=== PATIENT | male | born 1980 ===

== ENCOUNTER 2017-09-28 11:58 | Emergency (ER) | payer BC, OTHER ==
[2017-09-28] MEDS ORDERED: DOXYcycline CAP(*) 100 MG PO ONE (12:59)
--- NOTE | 2017-09-28 13:06 | UC ---
Skin Complaint HPI - HPI Summary HPI Summary: Patient is a 37-year-old male presenting to the with chief complaint of tick bite to the left inner thigh. He states he believes he has hepatitic for 5 days. Denies any pain to the area. 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 Denies any fevers, sweats, chills, body aches or joint pains. He has never been diagnosed with Lyme disease. - History of Current Complaint Chief Complaint: UCSkin Time Seen by Provider: 09/28/17 12:24 Stated Complaint: TICK BITE Hx Obtained From: Patient Onset/Duration: Sudden Onset Skin Exposure Onset/Duration: Hours Ago Timing: Constant Onset Severity: Moderate Current Severity: Moderate Pain Intensity: 0 Pain Scale Used: 0-10 Numeric Aggravating Factor(s): Nothing Alleviating Factor(s): Nothing Associated Signs & Symptoms: Positive: Negative Related History: Insect Bite/Sting - Allergy/Home Medications Allergies/Adverse Reactions: Allergies Allergy/AdvReac Type Severity Reaction Status Date / Time morphine Allergy Rash Verified 09/28/17 12:21 Home Medications: Home Medications NK [No Home Medications Reported] 09/28/17 [History Confirmed 09/28/17] Review of Systems Constitutional: Negative Skin: Other - erythematous reaction over tick bite Respiratory: Negative Cardiovascular: Negative Motor: Negative Neurovascular: Negative Musculoskeletal: Negative, Calf Tenderness Is Patient Immunocompromised?: No All Other Systems Reviewed And Are Negative: Yes PMH/Surg Hx/FS Hx/Imm Hx Previously Healthy: Yes - Surgical History Surgical History: None - Social History Occupation: Employed Full-time Lives: With Family Alcohol Use: Occasionally Substance Use Type: None Smoking Status (MU): Never Smoked Tobacco Physical Exam Triage Information Reviewed: Yes Appearance: Well-Appearing, No Pain Distress, Well-Nourished Vital Signs: Initial Vital Signs Temp 98.1 F 09/28/17 12:18 Pulse 90 09/28/17 12:18 Resp 16 09/28/17 12:18 BP 129/90 09/28/17 12:18 Pulse Ox 98 09/28/17 12:18 Vital Signs Reviewed: Yes Eye Exam: Normal Eyes: Positive: Conjunctiva Clear Neck exam: Normal Neck: Positive: Supple Respiratory Exam: Normal Respiratory: Positive: Chest non-tender, Lungs clear Cardiovascular Exam: Normal Cardiovascular: Positive: RRR Musculoskeletal Exam: Normal Musculoskeletal: Positive: Strength Intact Psychological: Positive: Normal Response To Family Skin: Positive: rashes - small erythemtaous reaction around tick bite Course/Dx - Course Course Of Treatment: Physical examination, there is no EM rash. There is a small localized erythematous reaction consistent with a tick bite measuring approximately 1 cm in diameter. I discussed prophylactic treatment with him as we're within the 72 hour range of prophylactic treatment, however tick likely not attached over 48 hours. Patient still requesting prophylactic treatment doxycycline 200 mg. This is given to him in the UC. I have given return precautions and symptoms of Lyme disease to be aware of. - Diagnoses Provider Diagnoses: tick bite Discharge - Sign-Out/Discharge Documenting (check all that apply): Discharge/Admit/Transfer - Discharge Plan Condition: Stable Disposition: HOME Patient Education Materials: Tick Bite (ED) Referrals: Sarah Marie MD [Primary Care Provider] - - Billing Disposition and Condition Condition: STABLE Disposition: Home
== END 2017-09-28 13:08 | disposition home or self-care (01) ==
LOC: UCEAST 11:58
DX: S70.362A Insect bite (nonvenomous), left thigh, initial encounter (principal); W57.XXXA Bitten or stung by nonvenomous insect and other nonvenomous arthropods, initial encounter; Y92.9 Unspecified place or not applicable; Z88.5 Allergy status to narcotic agent
CPT/HCPCS: 99202; A9270-GY; G0463